=== PATIENT | male | born 1950 | race Caucasian/White ===

== ENCOUNTER → 2017-09-26 | Outpatient (REF) ==
[~2017-09-26] MED LIST: DHA PO; EPA1000 MG PO; HCTZ 25MG TAB25 MG PO; LOPRESSOR 225 MG/TAB PO; MULTIPLE VITAMI1 TAB PO; NEXIUM 40MG40 MG PO; OMEGA 31000 MG PO
[2017-09-26 19:43] LABS: PSA-TOTAL 1.31 ng/mL (0-4); THYROID STIMULATING HORMONE 1.5 uIU/mL (0.465-4.680)
== END ==
LOC: ZLAB.WCH 18:54
PROVIDERS: Nurse Practitioner Family
DX: Z12.5 Encounter for screening for malignant neoplasm of prostate (principal)
CPT/HCPCS: G0103

== ENCOUNTER 2018-03-10 07:40 | Day surgery (SDC) | payer MEDICARE ==
[~2018-03-10] VITALS: Ht 188 cm; Wt 100.0 kg
[2018-03-10 08:10] VITALS: BP 110/81; PULSE 76; TEMP 98.2
[2018-03-10] MEDS ORDERED: PRILOTC PO (08:12)
[2018-03-10] MEDS ORDERED: ELIQUIS 5MG PO (08:24)
[2018-03-10] MEDS ORDERED: ASPIRIN 81M81 MG/TA2 PO (08:25)
[2018-03-10] MEDS ORDERED: FLOMAX 0.40.4 MG/CAP PO (08:26)
[2018-03-10] MEDS ORDERED: CARTIA XT180 MG PO (08:26)
[2018-03-10 08:28] LABS: HEMATOCRIT 45.9 % (42.0-52.0); HEMOGLOBIN 16.1 g/dl (13.5-18.0); MEAN CELL VOLUME 90 fl (80.0-100.0); MEAN CORPUSCULAR HEMOGLOBIN 32 pg (27.0-31.0); MEAN CORPUSCULAR HGB CONC 35 g/dl (33.0-37.0); MEAN PLATELET VOLUME 8.8 fl (7.4-10.4); PLATELET COUNT 236 K/mm3 (130-400); REDCELL DISTRIBUTION WIDTH-CV 13.1 % (11.5-14.5)
[2018-03-10 08:32] LABS: INR 1.5 (0.8-3.0); PROTHROMBIN TIME 17.5 SECONDS (9.7-12.8)
[2018-03-10 08:39] LABS: CALCIUM 8.9 mg/dL (8.4-10.2); CREATININE, serum 1.12 mg/dL (0.66-1.25); POTASSIUM 3.8 mmol/L (3.4-5.0)
[2018-03-10 09:15] VITALS: BP 106/81; PULSE 66
[2018-03-10 09:30] VITALS: BP 116/96; PULSE 66
[2018-03-10 09:45] VITALS: BP 118/89; PULSE 68
[2018-03-10 10:00] VITALS: BP 130/92; PULSE 69
== END 2018-03-10 10:33 | disposition home or self-care (01) ==
LOC: COL.CAR 07:40
PROVIDERS: Internal Medicine Cardiovascular Disease
DX: I48.2 Chronic atrial fibrillation (principal); I10 Essential (primary) hypertension; K21.9 Gastro-esophageal reflux disease without esophagitis; Z79.01 Long term (current) use of anticoagulants; Z79.82 Long term (current) use of aspirin
CPT/HCPCS: J2704

== ENCOUNTER → 2018-11-09 | Outpatient (REF) ==
[~2018-11-09] MED LIST changes: +ASPIRIN 81M81 MG/TA2 PO; +CARTIA XT180 MG PO; +ELIQUIS 5MG PO; +FLOMAX 0.40.4 MG/CAP PO; +PRILOTC PO
== END ==
LOC: ZLAB.WCH 16:07
DX: Z01.89 Encounter for other specified special examinations (principal)
CPT/HCPCS: G0103

== ENCOUNTER → 2019-08-09 | Outpatient (CLI) | payer MEDICARE | LOC: MHCPAIN 08:55 | DX: G89.29 Other chronic pain (principal); M47.817 Spondylosis without myelopathy or radiculopathy, lumbosacral region; M54.16 Radiculopathy, lumbar region; M53.3 Sacrococcygeal disorders, not elsewhere classified | CPT/HCPCS: G0463 ==

== ENCOUNTER → 2019-08-12 | Outpatient (CLI) | payer MEDICARE | LOC: MHCPAIN 09:35 | DX: M47.817 Spondylosis without myelopathy or radiculopathy, lumbosacral region (principal); M54.16 Radiculopathy, lumbar region | CPT/HCPCS: J1100; Q9967 ==

== ENCOUNTER → 2019-08-25 | Outpatient (CLI) | payer MEDICARE | LOC: MHCPAIN 10:49 | DX: G89.29 Other chronic pain (principal); M47.817 Spondylosis without myelopathy or radiculopathy, lumbosacral region; M54.16 Radiculopathy, lumbar region; M53.3 Sacrococcygeal disorders, not elsewhere classified | CPT/HCPCS: G0463 ==

== ENCOUNTER → 2019-08-30 | Outpatient (CLI) | payer MEDICARE | LOC: MHCPAIN 12:54 | DX: M47.817 Spondylosis without myelopathy or radiculopathy, lumbosacral region (principal); M54.16 Radiculopathy, lumbar region | CPT/HCPCS: J1100; Q9967 ==

== ENCOUNTER → 2019-09-15 | Outpatient (CLI) | payer MEDICARE | LOC: MHCPAIN 08:28 | DX: G89.29 Other chronic pain (principal); M47.817 Spondylosis without myelopathy or radiculopathy, lumbosacral region; M54.16 Radiculopathy, lumbar region; M53.3 Sacrococcygeal disorders, not elsewhere classified | CPT/HCPCS: G0463 ==